=== PATIENT | male | born 1965 | race Caucasian/White ===

== ENCOUNTER 2018-03-03 17:17 | Emergency (ER) | payer OTHER ==
[~2018-03-03] VITALS: Ht 182.9 cm; Wt 162.2 kg
[2018-03-03] MEDS ORDERED: LISINOPRIL 10 MG TABLET PO ONE (18:30)
[2018-03-03] MEDS ORDERED: LISINOPRIL 10 MG TABLET ONE (18:37)
[2018-03-03 18:51] LABS: BASOPHILS # (AUTO) 0.02 x10^3/uL (0-0.1); BASOPHILS % (AUTO) 0 % (0-1); EOSINOPHILS # (AUTO) 0.07 x10^3/uL (0-0.4); EOSINOPHILS % (AUTO) 1 % (1-7); LYMPHOCYTES # (AUTO) 1.94 x10^3/uL (1-3.4); LYMPHOCYTES % (AUTO) 20 % (22-44); MD NO; MEAN CORPUSCULAR HGB CONC 34.6 g/dL (33.2-36.2); MEAN CORPUSCULAR VOLUME 95.5 fL (81-97); MEAN PLATELET VOLUME 7.3 fL (7.4-10.4); MONOCYTES # (AUTO) 0.54 x10^3/uL (0.2-0.8); MONOCYTES % (AUTO) 6 % (2-9); NEUTROPHILS # (AUTO) 6.93 x10^3/uL (1.8-6.8); NEUTROPHILS % (AUTO) 73 % (42-75); PLATELET COUNT 137 x10^3/uL (130-400); RED CELL DISTRIBUTION WIDTH 12.9 % (9.4-14.8)
[2018-03-03 19:02] LABS: ALBUMIN 3.4 g/dL (3.4-5.0); ANION GAP 7 mmol/L (5-15); CALCIUM 8.6 mg/dL (8.5-10.1); CHLORIDE 106 mmol/L (98-107); CREATININE 0.82 mg/dL (0.7-1.3)
[2018-03-03 19:09] VITALS: BP 157/99
== END 2018-03-03 19:23 | disposition home or self-care (01) ==
LOC: ED 18:00
DX: F41.1 Generalized anxiety disorder (principal); I10 Essential (primary) hypertension
CPT/HCPCS: 36415; 70360; 71045; 80048; 82040; 85025; 93005; 99284

== ENCOUNTER 2018-03-05 04:50 | Inpatient (IN) | payer OTHER ==
[~2018-03-05] VITALS: Ht 182.9 cm; Wt 161.0 kg
[2018-03-05] MEDS ORDERED: LISI-167 PO (05:01)
[2018-03-05] MEDS ORDERED: ASPIRIN 81 MG TABLET CHEW PO ONE (05:30)
[2018-03-05] MEDS ORDERED: SODIUM CHLORIDE FLUSH 10ML SYR IVF ONE (05:30)
[2018-03-05] MEDS ORDERED: ASPIRIN 81 MG TABLET CHEW ONE (05:34)
[2018-03-05 05:55] LABS: BASOPHILS # (AUTO) 0.04 x10^3/uL (0-0.1); BASOPHILS % (AUTO) 0 % (0-1); EOSINOPHILS # (AUTO) 0.12 x10^3/uL (0-0.4); EOSINOPHILS % (AUTO) 1 % (1-7); LYMPHOCYTES # (AUTO) 2.68 x10^3/uL (1-3.4); LYMPHOCYTES % (AUTO) 25 % (22-44); MD NO; MEAN CORPUSCULAR HEMOGLOBIN 32.6 pg (27.5-34.5); MEAN CORPUSCULAR HGB CONC 34.1 g/dL (33.2-36.2); MEAN CORPUSCULAR VOLUME 95.4 fL (81-97); MEAN PLATELET VOLUME 7.2 fL (7.4-10.4); MONOCYTES # (AUTO) 0.78 x10^3/uL (0.2-0.8); MONOCYTES % (AUTO) 7 % (2-9); NEUTROPHILS # (AUTO) 7.31 x10^3/uL (1.8-6.8); NEUTROPHILS % (AUTO) 67 % (42-75); PLATELET COUNT 154 x10^3/uL (130-400); RED BLOOD COUNT 5.21 x10^6/uL (4.38-5.82); RED CELL DISTRIBUTION WIDTH 12.7 % (9.4-14.8)
[2018-03-05 06:05] LABS: CHLORIDE 107 mmol/L (98-107)
--- NOTE | 2018-03-05 06:13 | NUR ---
PT RESTING ON FAMILY ABRIL AT BEDSIDE. PT AWARE HE IS TO BE ADMITTED AND AWAITING TEST RESULTS.
[2018-03-05 06:18] LABS: ALANINE AMINOTRANSFERASE 37 U/L (12-78); ALBUMIN 3.7 g/dL (3.4-5.0); ALKALINE PHOSPHATASE 71 U/L (45-117); ANION GAP 7 mmol/L (5-15); BILIRUBIN,TOTAL 0.6 mg/dL (0.2-1.0); CREATININE 1.08 mg/dL (0.7-1.3); TOTAL PROTEIN 7.8 g/dL (6.4-8.2); TROPONIN I < 0.015 ng/mL (0.000-0.045)
--- NOTE | 2018-03-05 06:51 | NUR ---
Recieved bedside report from STEPHANIE Mendez. All questions answered. Pt requesting water. Provided pt water. NADN. Pt connected to all monitors. Pt's skin is pink, warm, and dry. Pt has unlabored respirations equal bilaterally. All safety measures in place. No other needs requested at this time. Waiting to recieve room assignment for admission and to give report. Pt to be admitted per ED MD for observation and stress test.
[2018-03-05] MEDS ORDERED: SODIUM CHLORIDE FLUSH 10ML SYR IVF PRN (07:00)
[2018-03-05] MEDS ORDERED: MAALOX/HYOSCYAMINE/LIDOCAINE 45 ML BTL PO ONE (07:00)
[2018-03-05] MEDS ORDERED: MAALOX/HYOSCYAMINE/LIDOCAINE 45 ML BTL ONE (07:01)
[2018-03-05] MEDS ORDERED: NITROGLYCERIN SINGLE TAB 0.4 MG SL ONE (07:21)
--- NOTE | 2018-03-05 07:23 | NUR ---
Pt states, "My heartburn pain has gone away since the medicaiton. I am having some back pain between my shoulder blades though." Pt's blood pressure is now 190/109 with heart rate in the 110-110's. ED aware. Provided pt medicaiton per emar. Observing pt post medicaiton administration.
[2018-03-05] MEDS ORDERED: LORazepam 2 MG/ML, 1ML IVPush ONE (07:30)
[2018-03-05] MEDS ORDERED: NITROGLYCERIN SINGLE TAB 0.4 MG SL PRN (07:30)
[2018-03-05] MEDS ORDERED: LORazepam 2 MG/ML, 1ML ONE (07:33)
--- NOTE | 2018-03-05 07:39 | NUR ---
Pt c/o "chest tightness and tingling in the arms. It feels like my anxiety." ED MD aware. Provided pt medicaiton per emar. BP is at 152/99 and HR 115.
[2018-03-05] MEDS ORDERED: DOCUSATE 100 MG CAPSULE PO PRN (08:30)
[2018-03-05] MEDS ORDERED: GUAIFENESIN/COD200MG-20MG/10ML LIQUID PO PRN (08:30)
[2018-03-05] MEDS ORDERED: ACETAMINOPHEN 325 MG TABLET PO PRN (08:30)
[2018-03-05] MEDS ORDERED: ONDANSETRON 2MG/ML, 2ML IVPush PRN (08:30)
[2018-03-05] MEDS: ENOXAPARIN 40 MG/0.4 ML SQ SCH (08:30)
[2018-03-05] MEDS ORDERED: LISINOPRIL 20 MG TABLET ONE (08:42)
[2018-03-05] MEDS ORDERED: AMLODIPINE 5 MG TABLET ONE (08:42)
[2018-03-05] MEDS ORDERED: ENOXAPARIN 40 MG/0.4 ML ONE (08:42)
[2018-03-05] MEDS: AMLODIPINE 5 MG TABLET PO SCH (08:45)
[2018-03-05] MEDS: LISINOPRIL 20 MG TABLET PO SCH (08:45)
[2018-03-05] MEDS ORDERED: LABETALOL 20 MG/4 ML ONE (08:49)
[2018-03-05] MEDS: LABETALOL 5MG/ML, 20ML IVPush PRN ×2 (08:52→14:34)
--- NOTE | 2018-03-05 08:55 | NUR ---
PROVIDED MEDICATIONS PER EMAR FOR BLOOD PRESSURE. PT RESTING ON GURNEY WITH ALL SAFETY MEASURES IN PLACE. PT CONNECTED TO ALL MONITORS. NO NEEDS REQUESTED AT THIS TIME.
[2018-03-05 09:24] LABS: CHOL/HDL RATIO 5.3
--- NOTE | 2018-03-05 09:39 | NUR ---
PT RESTING ON GURNEY SLEEPING. NADN. PLEASE SEE VS. PT RESPONDED TO BLOOD PRESSURE MEDICATIONS OER EMAR WITH OUT ANY COMPLICATIONS. PROVIDED PT WARM BLANKETS AND TURNED DOWN LIGHTS FOR COMFORT MEASURES. NO OTHER NEEDS EXPRESSED AT THIS TIME.
[2018-03-05 10:00] LABS: HEMOGLOBIN A1C 4.9 % (4.2-6.3)
--- NOTE | 2018-03-05 10:23 | NUR ---
PT AMBULATES TO RESTROOM WITH STEADY GAIT AND BALANCE.
--- NOTE | 2018-03-05 10:48 | NUR ---
LATE NOTE ENTRY AT 1035. PT AMBULATED BACK TO RESTROOM WITH STEADY GAIT AND BALANCE. PT CONNECTED TO ALL MONITORS. NADN. NO NEEDS REQUESTED AT THIS TIME.
--- NOTE | 2018-03-05 11:00 | NUR ---
PROVIDED REPORT TO STEPHANIE WHITE. ALL QUESTIONS ANSWERED. PT READY TO TRANSFER TO FLOOR FROM ED.
[2018-03-05 11:30] VITALS: BP 164/96
[2018-03-05 12:27] LABS: TROPONIN I < 0.015 ng/mL (0.000-0.045)
--- NOTE | 2018-03-05 14:29 | NUR ---
LATE NOTE ENTRY FOR 1110. PT TRANSFERED TO FLOOR ON [facility] FROM ED. PT LEFT WITH ALL PERSONAL BELONGINGS.
[2018-03-05 14:30] VITALS: BP 190/115
[2018-03-05 15:30] VITALS: BP 150/103
[2018-03-05 18:18] LABS: TROPONIN I < 0.015 ng/mL (0.000-0.045)
[2018-03-05 19:30] VITALS: BP 165/100
[2018-03-05] MEDS ORDERED: hydrALAzine 20 MG/ML, 1ML IV PRN (20:00)
[2018-03-06 02:14] VITALS: BP 154/100
[2018-03-06 06:00] LABS: BASOPHILS # (AUTO) 0.02 x10^3/uL (0-0.1); BASOPHILS % (AUTO) 0 % (0-1); EOSINOPHILS # (AUTO) 0.13 x10^3/uL (0-0.4); EOSINOPHILS % (AUTO) 1 % (1-7); LYMPHOCYTES # (AUTO) 2.95 x10^3/uL (1-3.4); LYMPHOCYTES % (AUTO) 33 % (22-44); MD NO; MEAN CORPUSCULAR HEMOGLOBIN 32.8 pg (27.5-34.5); MEAN CORPUSCULAR HGB CONC 34.6 g/dL (33.2-36.2); MEAN CORPUSCULAR VOLUME 94.9 fL (81-97); MEAN PLATELET VOLUME 7.4 fL (7.4-10.4); MONOCYTES # (AUTO) 0.74 x10^3/uL (0.2-0.8); MONOCYTES % (AUTO) 8 % (2-9); NEUTROPHILS # (AUTO) 5.19 x10^3/uL (1.8-6.8); NEUTROPHILS % (AUTO) 58 % (42-75); PLATELET COUNT 131 x10^3/uL (130-400); RED BLOOD COUNT 4.64 x10^6/uL (4.38-5.82); RED CELL DISTRIBUTION WIDTH 12.5 % (9.4-14.8)
[2018-03-06 06:11] LABS: ANION GAP 7 mmol/L (5-15); CALCIUM 8.1 mg/dL (8.5-10.1); CHLORIDE 109 mmol/L (98-107)
[2018-03-06 06:14] LABS: CREATININE 0.77 mg/dL (0.7-1.3)
[2018-03-06 07:32] VITALS: BP 152/111
[2018-03-06] MEDS: ENOXAPARIN 40 MG/0.4 ML SQ SCH (08:27)
[2018-03-06] MEDS: LISINOPRIL 20 MG TABLET PO SCH (08:27)
[2018-03-06] MEDS: AMLODIPINE 5 MG TABLET PO SCH (08:27)
[2018-03-06] MEDS ORDERED: REGADENOSON 0.4 MG/5 ML SYRINGE ONE (09:14)
[2018-03-06 12:14] VITALS: BP_SYST 151; BP_SYST 156; BP_SYST 165; BP_DIAS 106; BP_DIAS 93; BP_DIAS 95
[2018-03-06 17:22] VITALS: BP 156/96
[2018-03-06 20:07] VITALS: BP 161/74
[2018-03-06 20:27] VITALS: BP_SYST 161; BP_SYST 168; BP_DIAS 103; BP_DIAS 91
[2018-03-07 03:16] VITALS: BP 148/87
[2018-03-07 07:08] VITALS: BP 153/97
[2018-03-07] MEDS: LISINOPRIL 20 MG TABLET PO SCH (09:00)
[2018-03-07] MEDS: ENOXAPARIN 40 MG/0.4 ML SQ SCH (09:00)
[2018-03-07] MEDS: AMLODIPINE 5 MG TABLET PO SCH (09:00)
[2018-03-07 13:07] VITALS: BP 159/96
[2018-03-07] MEDS ORDERED: LISI-167 PO (13:46)
== END 2018-03-07 15:44 | disposition home or self-care (01) | DRG 305 ==
LOC: ED 05:31 → EDIP 06:36 → 5SO 11:18 → DCLOUNGE 03-07 15:35
PROVIDERS: ADMIT Hospitalist; ATTEND Hospitalist
DX: I10 Essential (primary) hypertension (principal); Z68.42 Body mass index [BMI] 45.0-49.9, adult; F41.1 Generalized anxiety disorder; Z82.49 Family history of ischemic heart disease and other diseases of the circulatory system; F17.210 Nicotine dependence, cigarettes, uncomplicated; E66.01 Morbid (severe) obesity due to excess calories; I51.89 Other ill-defined heart diseases; Z88.0 Allergy status to penicillin; Z72.89 Other problems related to lifestyle
CPT/HCPCS: 36415; 71045; 78452; 80048; 80053; 80061; 83036; 83735; 84100; 84443; 84484; 85025; 90656; 93005; 93017; 93306; 96374; G0378; J1650; J2785; A9502; C9898; J2060

== ENCOUNTER 2018-10-06 10:12 | Emergency (ER) | payer OTHER ==
[~2018-10-06] VITALS: Ht 180.3 cm; Wt 155.0 kg
[~2018-10-06 10:12] MED LIST: LISI-167 PO
[2018-10-06] MEDS ORDERED: OMEP20TA62 PO (10:52)
[2018-10-06] MEDS ORDERED: HYDR12.517 PO (10:52)
[2018-10-06] MEDS ORDERED: CLON0.12 PO (10:52)
[2018-10-06] MEDS ORDERED: ASPIRI PO (10:52)
--- NOTE | 2018-10-06 10:59 | NUR ---
PT PLACED ON HEART MONITOR, BP CUFF, PULSE OX. PT DENIES PAIN OR DISCOMFORT OR ANXIETY AT THIS TIME. CALL LIGHT WITHIN REACH, WARM BLANKET PROVIDED. VSS/UPDATED IN COMPUTER.
--- NOTE | 2018-10-06 11:13 | NUR ---
ERP IN TO SEE PT. ASA PER ERP ORDER NOT GIVEN D/T PT TOOK 325 MG [employer]. CALL LIGHT WITHIN REACH.
[2018-10-06] MEDS ORDERED: ASPIRIN 81 MG TABLET CHEW PO ONE (11:30)
[2018-10-06 11:38] LABS: BASOPHILS # (AUTO) 0.05 x10^3/uL (0-0.1); BASOPHILS % (AUTO) 1 % (0-1); EOSINOPHILS # (AUTO) 0.08 x10^3/uL (0-0.4); EOSINOPHILS % (AUTO) 1 % (1-7); LYMPHOCYTES # (AUTO) 1.72 x10^3/uL (1-3.4); LYMPHOCYTES % (AUTO) 27 % (22-44); MD NO; MEAN CORPUSCULAR HEMOGLOBIN 32.8 pg (27.5-34.5); MEAN CORPUSCULAR HGB CONC 33.7 g/dL (33.2-36.2); MEAN CORPUSCULAR VOLUME 97.3 fL (81-97); MEAN PLATELET VOLUME 7.1 fL (7.4-10.4); MONOCYTES # (AUTO) 0.51 x10^3/uL (0.2-0.8); MONOCYTES % (AUTO) 8 % (2-9); NEUTROPHILS # (AUTO) 4.09 x10^3/uL (1.8-6.8); NEUTROPHILS % (AUTO) 63 % (42-75); PLATELET COUNT 147 x10^3/uL (130-400); RED BLOOD COUNT 4.74 x10^6/uL (4.38-5.82); RED CELL DISTRIBUTION WIDTH 12.2 % (9.4-14.8)
[2018-10-06 11:43] LABS: ALANINE AMINOTRANSFERASE 24 U/L (12-78); ALBUMIN 3.3 g/dL (3.4-5.0); ANION GAP 3 mmol/L (5-15); CALCIUM 8.9 mg/dL (8.5-10.1); CHLORIDE 111 mmol/L (98-107); CREATININE 0.71 mg/dL (0.7-1.3)
[2018-10-06 11:48] LABS: ALKALINE PHOSPHATASE 53 U/L (45-117); TOTAL PROTEIN 7.2 g/dL (6.4-8.2); TROPONIN I < 0.015 ng/mL (0.000-0.045)
[2018-10-06 12:09] LABS: BILIRUBIN,TOTAL 0.6 mg/dL (0.2-1.0)
--- NOTE | 2018-10-06 12:14 | NUR ---
ALL RESULTS BACK, PT FOR RECHECK.
[2018-10-06 12:15] VITALS: BP 130/77
[2018-10-06] MEDS ORDERED: LORazepam 1MG TABLET ONE (12:42)
[2018-10-06] MEDS ORDERED: LORazepam 1MG TABLET PO ONE (13:00)
== END 2018-10-06 13:42 | disposition home or self-care (01) ==
LOC: ED 10:57
DX: R07.89 Other chest pain (principal); F41.1 Generalized anxiety disorder; I10 Essential (primary) hypertension
CPT/HCPCS: 36415; 71045; 80053; 83880; 84484; 85025; 93005; 99284